=== PATIENT | female | born 1990 | race African-American/Black ===

== ENCOUNTER 2021-05-12 17:43 | Outpatient (CLI) | payer OTHER, SELFPAY ==
--- NOTE | ~2021-05-12 | XR_ITS ---
EXAMINATION:XR_[id number], XR lumbar spine 2-3V, XR thoracic spine 2V DATE: 05/12/2021 18:54 INDICATION: Cervical, thoracic and lumbar spine pain. TECHNIQUE: 1. AP, lateral,, submental and open-mouth odontoid views of the cervical spine are provided. 2. Standing AP and lateral views of the thoracic spine were obtained. 3. Standing AP and lateral views of the lumbar spine were obtained. COMPARISON: None FINDINGS: Cervical spine: Alignment is normal. Odontoid is intact. Normal atlantoaxial interval. Vertebral body heights are no rmal. Disc spaces are normal. Prevertebral soft tissues are normal. Thoracic spine: 5 degree levocurvature measured between T2 and T5. Sagittal alignment is normal. Vertebral body and d isc heights are normal. Visual is portions of the lungs are clear with no pleural effusion or pneumot horax. Cardiomediastinal silhouette is normal. Lumbar spine: 8 degree levocurvature measured between T11 and L3. Sacralized L5 segment. Vertebral tono dy and disc heights are normal. Sacrum and bilateral sacral iliac joints are unremarkable. IMPRESSION: 1. Mild levocurvature in the upper thoracic spine and at the thoracolumbar junction. Reviewed, dictated and finalized at location A. IMPRESSION: 1. Mild levocurvature in the upper thoracic spine and at the thoracolumbar junc tion. IMPRESSION: 1. Mild levocurvature in the upper thoracic spine and at the thoracolumbar junc tion.
== END 2021-05-12 17:44 ==
PROVIDERS: Visit Provider Chiropractor
DX: M54.2 Cervicalgia (principal); M54.6 Pain in thoracic spine; M54.5 Low back pain
CPT/HCPCS: 72040; 72070; 72100